=== PATIENT | female | born 1950 | race Caucasian/White ===

== ENCOUNTER 2017-06-21 20:50 | Emergency (ER) | payer MEDICARE ==
[2017-06-21 21:44] LABS: Bilirubin,Urine NEG (Negative); Blood,Urine SM (Negative); Ketones,Urine 80 mg/dL (Negative); Leukocyte Esterase,Urine TR (Negative); Mucus,Urine FEW /HPF; Nitrite,Urine NEG (Negative); Urobilinogen,Urine < 2.0 mg/dL (<2.0)
[2017-06-21 22:05] LABS: Alanine Aminotransferase 52 units/L (7-56); Albumin 2.9 g/dL (3.9-5); Alkaline Phosphatase 70 units/L (35-129); Anion Gap 17 mmol/L; BUN/Creatinine Ratio 26.66; Blood Urea Nitrogen 8 mg/dL (7-17); Calcium 7.5 mg/dL (8.4-10.2); Carbon Dioxide 22 mmol/L (22-30); Chloride 97.6 mmol/L (98-107); Glucose 150 mg/dL (65-100); Lipase 54 units/L (13-60); Potassium 3.1 mmol/L (3.6-5.0); Sodium 133 mmol/L (137-145); Total Protein 5.8 g/dL (6.3-8.2)
[2017-06-21 22:07] LABS: Basophils % (Auto) 0.2 % (0.0-1.8); Eosinophils % (Auto) 0.4 % (0.0-4.3); Hemoglobin 12.2 gm/dl (10.1-14.3); Mean Corpuscular HGB Conc 34 % (30-34); Mean Corpuscular Hemoglobin 33 pg (28-32); Mean Corpuscular Volume 97 fl (79-97); Platelet Count 237 K/mm3 (140-440); Red Blood Count 3.71 M/mm3 (3.65-5.03); Red Cell Distribution Width 15.9 % (13.2-15.2); White Blood Count 16.6 K/mm3 (4.5-11.0)
[2017-06-22] MEDS ORDERED: SUBLIMAZE IV ONE ×2 (00:37)
[2017-06-22] MEDS ORDERED: ZOFRAN IV ONE (00:43)
[2017-06-22 01:02] VITALS: BP 127/81
[2017-06-22] MEDS ORDERED: NORCO 10/325 PO ONE (01:51)
--- NOTE | 2017-06-22 01:51 | Emergency Department Report ---
ED Abdominal Pain HPI - General Chief Complaint: Abdominal Pain Stated Complaint: WEAKNESS/STOMACH PAIN Time Seen by Provider: 06/22/17 00:31 Source: patient Mode of arrival: Wheelchair Limitations: No Limitations - History of Present Illness Initial Comments: Patient is a 66-year-old female past medical history of hypertension and GERD who presents with abdominal pain. Pt states that she was discharged from the hospital yesterday. She states that she is having having abdominal pain she states that she has not taking her oral analgesic medication that she was discharged with. Patient denies having any nausea. Or vomiting she states that she hasn't been able to eat because of the generalized body pain. It is located in her stomach and radiates throughout her body. This an 8 out 10 as an achy type pain. She hasn't tried anything for the abdominal pain. She states that she's been passing a small amount of gas. This is the same type of pain she's had yesterday and it has been controlled with oral and IV medications. Patient denies having any fever or any dysuria any chills any blood in the stool or blood in the urine. Severity scale (0 -10): 10 - Related Data Home Medications Medication Instructions Recorded Confirmed Last Taken Baclofen [Lioresal] 10 mg PO QHS PRN 06/15/17 06/22/17 06/21/17 Famotidine [Pepcid] 20 mg PO QDAY 06/15/17 06/22/17 06/21/17 Lovastatin [Altoprev] 10 mg PO QDAY 06/15/17 06/22/17 06/21/17 Potassium Chloride [Klor-Con 10] 10 meq PO BID 06/15/17 06/22/17 06/21/17 Previous Rx's Medication Instructions Recorded Last Taken Type Acetaminophen [Acetaminophen TAB] 325 mg PO Q4H PRN #30 tablet 06/20/17 Rx Pantoprazole [Protonix TAB] 40 mg PO QDAY #60 tablet 06/20/17 06/21/17 Rx oxyCODONE /ACETAMINOPHEN [Percocet 1 tab PO Q4H PRN #30 tablet 06/20/17 Rx 5/325 mg] Allergies Allergy/AdvReac Type Severity Reaction Status Date / Time Penicillins Allergy Unknown Verified 06/22/17 00:58 ED Review of Systems ROS: Stated complaint: WEAKNESS/STOMACH PAIN Other details as noted in HPI Constitutional: denies: chills, fever Eyes: denies: eye pain, eye discharge, vision change ENT: denies: ear pain, throat pain Respiratory: denies: cough, shortness of breath, wheezing Cardiovascular: denies: chest pain, palpitations Endocrine: no symptoms reported Gastrointestinal: abdominal pain. denies: nausea, diarrhea Genitourinary: denies: urgency, dysuria, discharge Musculoskeletal: denies: back pain, joint swelling, arthralgia Skin: denies: rash, lesions Neurological: denies: headache, weakness, paresthesias Psychiatric: denies: anxiety, depression Hematological/Lymphatic: denies: easy bleeding, easy bruising ED Past Medical Hx - Past Medical History Hx Hypertension: Yes Hx Heart Attack/AMI: No Hx GERD: Yes Hx Liver Disease: No (elevate liver enzyme due to RA medications) Hx Renal Disease: No Hx Arthritis: Yes (rheumatoid) Hx Seizures: No Additional medical history: GERD - Social History Smoking Status: Never Smoker - Medications Home Medications: Home Medications Medication Instructions Recorded Confirmed Last Taken Type Baclofen [Lioresal] 10 mg PO QHS PRN 06/15/17 06/22/17 06/21/17 History Famotidine [Pepcid] 20 mg PO QDAY 06/15/17 06/22/17 06/21/17 History Lovastatin [Altoprev] 10 mg PO QDAY 06/15/17 06/22/17 06/21/17 History Potassium Chloride [Klor-Con 10] 10 meq PO BID 06/15/17 06/22/17 06/21/17 History Acetaminophen [Acetaminophen TAB] 325 mg PO Q4H PRN #30 tablet 06/20/1706/21/17 Rx Pantoprazole [Protonix TAB] 40 mg PO QDAY #60 tablet 06/20/17 06/22/17 06/21/17 Rx oxyCODONE /ACETAMINOPHEN [Percocet 1 tab PO Q4H PRN #30 tablet 06/20/1706/22/17 Rx 5/325 mg] ED Physical Exam - General Limitations: No Limitations General appearance: alert, in no apparent distress - Head Head exam: Present: atraumatic, normocephalic - Eye Eye exam: Present: normal appearance - ENT ENT exam: Present: mucous membranes moist - Neck Neck exam: Present: normal inspection - Respiratory Respiratory exam: Present: normal lung sounds bilaterally. Absent: respiratory distress - Cardiovascular Cardiovascular Exam: Present: regular rate, normal rhythm. Absent: systolic murmur, diastolic murmur, rubs, gallop - GI/Abdominal GI/Abdominal exam: Present: soft, normal bowel sounds, other (mild tenderness to palpation surgical scar. Slight bruising on epigastric area surgical wound is clean dry and intact). Absent: guarding, rebound, rigid - Extremities Exam Extremities exam: Present: normal inspection - Back Exam Back exam: Present: normal inspection - Neurological Exam Neurological exam: Present: alert, oriented X3, CN II-XII intact - Psychiatric Psychiatric exam: Present: normal affect, normal mood - Skin Skin exam: Present: warm, dry, intact, normal color. Absent: rash ED Course Vital Signs 06/21/17 06/21/17 06/22/17 21:01 23:56 01:00 Temperature 97.8 F 98.5 F Pulse Rate 98 H 84 72 Respiratory 16 22 Rate Blood Pressure 125/81 108/74 Blood Pressure 127/81 [Right] O2 Sat by Pulse 97 98 100 Oximetry - Reevaluation(s) Reevaluation #1: 06/22/17 02:13 She is feeling better after IV and oral analgesic medication I will send the patient home and instruct patient to take one to 2 pills every 6 hours. ED Medical Decision Making - Lab Data Result diagrams: 06/21/17 21:32 06/21/17 21:32 Lab Results 06/21/17 06/21/17 06/21/17 Range/Units 21:22 21:32 21:32 WBC 16.6 H (4.5-11.0) K/mm3 RBC 3.71 (3.65-5.03) M/mm3 Hgb 12.2 (10.1-14.3) gm/dl Hct 36.0 (30.3-42.9) % MCV 97 (79-97) fl MCH 33 H (28-32) pg MCHC 34 (30-34) % RDW 15.9 H (13.2-15.2) % Plt Count 237 (140-440) K/mm3 Lymph % (Auto) 4.8 L (13.4-35.0) % Bacon % (Auto) 5.1 (0.0-7.3) % Eos % (Auto) 0.4 (0.0-4.3) % Baso % (Auto) 0.2 (0.0-1.8) % Lymph # 0.8 L (1.2-5.4) K/mm3 Bacon # 0.9 H (0.0-0.8) K/mm3 Eos # 0.1 (0.0-0.4) K/mm3 Baso # 0.0 (0.0-0.1) K/mm3 Seg Neutrophils % 89.5 H (40.0-70.0) % Seg Neutrophils # 14.8 H (1.8-7.7) K/mm3 Sodium 133 L (137-145) mmol/L Potassium 3.1 L (3.6-5.0) mmol/L Chloride 97.6 L (98-107) mmol/L Carbon Dioxide 22 (22-30) mmol/L Anion Gap 17 mmol/L BUN 8 (7-17) mg/dL Creatinine 0.3 L D (0.7-1.2) mg/dL Estimated GFR > 60 ml/min BUN/Creatinine Ratio 26.66 % Glucose 150 H (65-100) mg/dL Calcium 7.5 L (8.4-10.2) mg/dL Total Bilirubin 0.50 (0.1-1.2) mg/dL AST 32 (5-40) units/L ALT 52 (7-56) units/L Alkaline Phosphatase 70 (35-129) units/L Total Protein 5.8 L (6.3-8.2) g/dL Albumin 2.9 L (3.9-5) g/dL Albumin/Globulin Ratio 1.0 % Lipase 54 (13-60) units/L Urine Color Yellow (Yellow) Urine Turbidity Clear (Clear) Urine pH 6.0 (5.0-7.0) Ur Specific Brave 1.020 (1.003-1.030) Urine Protein 100 mg/dl (Negative) mg/dL Urine Glucose (UA) 50 (Negative) mg/dL Urine Ketones 80 (Negative) mg/dL Urine Blood Sm (Negative) Urine Nitrite Neg (Negative) Urine Bilirubin Neg (Negative) Urine Urobilinogen < 2.0 (<2.0) mg/dL Ur Leukocyte Esterase Tr (Negative) Urine WBC (Auto) 1.0 (0.0-6.0) /HPF Urine RBC (Auto) 5.0 (0.0-6.0) /HPF Urine Mucus Few /HPF - Medical Decision Making Chief Medical diagnosis: Postop pain from surgical site. Differential medical diagnosis: Hypokalemia, ileus CBC, CMP, IV analgesic medication, oral analgesic pain medication and urinalysis. Patient is feeling better after the oral and IV analgesic pain medication I'll send patient home. Patient likely had unresolved pain from not taking any of the oral pain medication that she was given at discharge. The patient return precautions to come back to the emergency department if she is not feeling better or if she has some fever nausea or vomiting. Critical care attestation.: If time is entered above; I have spent that time in minutes in the direct care of this critically ill patient, excluding procedure time. ED Disposition Clinical Impression: Postoperative abdominal pain Abdominal pain Qualifiers: Abdominal location: generalized Qualified Code(s): R10.84 - Generalized abdominal pain GERD (gastroesophageal reflux disease) Qualifiers: Esophagitis presence: esophagitis presence not specified Qualified Code(s): K21.9 - Gastro-esophageal reflux disease without esophagitis Rheumatoid arthritis Qualifiers: Rheumatoid arthritis location: hand Rheumatoid factor presence: unspecified presence Laterality: unspecified laterality Qualified Code(s): M06.9 - Rheumatoid arthritis, unspecified Disposition: DC- TO HOME OR SELFCARE Is pt being admited?: No Does the pt Need Aspirin: No Condition: Stable Instructions: Abdominal Pain (ED) Additional Instructions: Please take your oxycodone on 1-2 tablets every 6 hours as needed for pain. Referrals: PRIMARY CARE [Primary Care Provider] - 3-5 Days Time of Disposition: 02:17
== END 2017-06-22 02:30 | disposition home or self-care (01) ==
LOC: ED 20:50
DX: G89.18 Other acute postprocedural pain (principal); K21.9 Gastro-esophageal reflux disease without esophagitis; I10 Essential (primary) hypertension; M06.9 Rheumatoid arthritis, unspecified; Z88.0 Allergy status to penicillin
CPT/HCPCS: 36415; 80053; 81001; 83690; 85025; 96374; 96375; 99283; J2405; J3010